=== PATIENT | female | born 1945 | race Two or more races ===

== ENCOUNTER 2023-06-25 09:00 | Inpatient (IN) | payer OTHER ==
[~2023-06-25] VITALS: Ht 149.9 cm; Wt 64.0 kg
[2023-06-25] MEDS ORDERED: OMEGA-31000 MG PO (14:41)
[2023-06-25] MEDS ORDERED: CARVEDILOL6.25 MG (14:42)
[2023-06-25] MEDS ORDERED: ZYLOPRIM100 M1 PO (14:42)
[2023-06-25] MEDS ORDERED: PEPCID AC20 MG PO (14:42)
[2023-06-25] MEDS ORDERED: CLARITIN10 M2 PO (14:43)
[2023-06-25] MEDS ORDERED: JANUVIA25 MG PO (14:43)
[2023-06-25] MEDS ORDERED: LIPITOR20 MG PO (14:43)
[2023-06-25] MEDS ORDERED: HYZAAR 100-251 EACH PO (14:44)
[2023-06-25] MEDS ORDERED: GLIPIZIDE XL5 MG PO (14:45)
[2023-06-25] MEDS ORDERED: HYDRALAZINE HCL25 MG PO (14:46)
[2023-07-09] MEDS ORDERED: METRONIDAZOLE/SODIUM CHLORIDE 500 MG/100 ML PIGGYBACK IV ONE ×3 (09:42→16:43)
[2023-07-09] MEDS ORDERED: levoFLOXacin IN DEXTROSE 5 % 5 MG/ML PIGGYBAG IV ONE ×2 (09:42→11:15)
[2023-07-09] MEDS ORDERED: BUPIVACAINE HCL/PF 0.5% 30ML ML ONE (09:47)
[2023-07-09] MEDS ORDERED: LIDOCAINE HCL 1%/Epi 20ML VIAL IJ ONE (09:47)
[2023-07-09] MEDS ORDERED: LIDOCAINE HCL/EPINEPHRINE 30 ML ML IJ ONE (11:15)
[2023-07-09] MEDS ORDERED: BUPIVACAINE HCL 30 ML VIAL IV ONE (11:15)
[2023-07-09] MEDS ORDERED: SUGAMMADEX SODIUM 200 MG/2 ML VIAL IV ONE ×2 (11:25→11:30)
[2023-07-09] MEDS ORDERED: LACTOBACILLUS ACIDOPHILUS 1 CAP CAP PO SCH (12:06)
[2023-07-09] MEDS ORDERED: RINGERS SOLUTION,LACTATED 1,000 ML IV SCH (12:15)
[2023-07-09] MEDS ORDERED: MORPHINE SULFATE 4 MG/ML CARTRIDGE IV PRN (12:15)
[2023-07-09] MEDS ORDERED: ONDANSETRON HCL 2 MG/ML VIAL IV PRN (12:15)
[2023-07-09] MEDS ORDERED: OxyCODONE HCL 5 MG TABLET (ROXICODONE) PO PRN (12:15)
[2023-07-09] MEDS ORDERED: HYOSCYAMINE SULFATE 0.125 MG TAB.SUBL SL SCH (13:00)
[2023-07-09] MEDS ORDERED: HYOSCYAMINE SULFATE 0.125 MG TAB.SUBL ONE (16:43)
[2023-07-09] MEDS ORDERED: GABAPENTIN 300 MG CAPSULE PO ONE (16:43)
[2023-07-09] MEDS ORDERED: METRONIDAZOLE/SODIUM CHLORIDE 500 MG/100 ML PIGGYBACK IV SCH (17:00)
[2023-07-09] MEDS ORDERED: GABAPENTIN 300 MG CAPSULE PO SCH (17:00)
[2023-07-09] MEDS ORDERED: ACETAMINOPHEN 500 MG GEL..CAP PO SCH (18:00)
[2023-07-09] MEDS ORDERED: CIPROFLOXACIN IN 5 % DEXTROSE 400 MG/200 ML PIGGYBAG IV SCH (21:00)
[2023-07-09] MEDS ORDERED: FAMOTIDINE/PF 20 MG/2 ML VIAL IV PUSH SCH (21:00)
[2023-07-10 07:58] LABS: ALBUMIN 2.9 gm/dL (3.4-5.0); CALCIUM 8.5 mg/dL (8.5-10.1); CREATININE SERUM 1.36 mg/dL (0.55-1.02); GFR 37.7; MAGNESIUM 1.9 mg/dL (1.8-2.4); PHOSPHOROUS 3.2 mg/dL (2.5-4.9); POTASSIUM 4.45 mEq/L (3.5-5.1)
[2023-07-10 09:09] LABS: MEAN CELL VOLUME 93.6 fL (80.00-100.00); PLATELET COUNT 172 K/uL (150-450); RED BLOOD COUNT 2.39 M/uL (4.00-6.00); RED CELL DISTRIBUTION WIDTH 14.5 % (11.5-14.5)
[2023-07-10 09:30] LABS: MEAN CORPUSCULAR HEMOGLOBIN 31.7 pg (27.00-32.0)
[2023-07-10 09:31] LABS: HEMATOCRIT 22.4 % (36.0-45.00); HEMOGLOBIN 7.6 g/dL (12.0-15.00)
[2023-07-10] MEDS ORDERED: FUROsemide 20 MG/2 ML VIAL IV PRN (10:45)
[2023-07-10] MEDS ORDERED: ENOXAPARIN SODIUM 40 MG/0.4 ML SYRINGE SUBCUTANEO SCH (17:00)
[2023-07-11 02:58] LABS: HEMATOCRIT 32.6 % (36.0-45.00); HEMOGLOBIN 11.5 g/dL (12.0-15.00); MEAN CELL VOLUME 86.4 fL (80.00-100.00); MEAN CORPUSCULAR HEMOGLOBIN 30.6 pg (27.00-32.0); MEAN CORPUSCULAR HGB CONC 35.4 g/dl (32.0-36.0); RED BLOOD COUNT 3.77 M/uL (4.00-6.00)
[2023-07-11 02:59] LABS: PLATELET COUNT 154 K/uL (150-450)
[2023-07-11 03:02] LABS: RED CELL DISTRIBUTION WIDTH 18.2 % (11.5-14.5)
[2023-07-11] MEDS ORDERED: ENOXAPARIN SODIUM 40 MG/0.4 ML SYRINGE SUBCUTANEO SCH (09:00)
[2023-07-12] MEDS ORDERED: NEURONTIN300 MG PO (07:05)
[2023-07-12] MEDS ORDERED: ACETAMINOPHEN650 M2 PO (07:06)
== END 2023-07-12 14:34 | disposition home or self-care (01) | DRG 330 ==
LOC: O/R 07-09 06:50 → SURG 07-09 06:50 → SURH 07-09 09:00 → O/R 07-09 11:50 → SURG 07-09 14:31
PROVIDERS: ADMIT Surgery; ATTEND Surgery
PROC: 07BB4ZZ Excision of Mesenteric Lymphatic, Percutaneous Endoscopic Approach (ICD-10-PCS; 2023-07-09)
PROC: 0DTF4ZZ Resection of Right Large Intestine, Percutaneous Endoscopic Approach (ICD-10-PCS; principal; 2023-07-09 11:00)
DX: C18.0 Malignant neoplasm of cecum (principal); K62.5 Hemorrhage of anus and rectum; K63.89 Other specified diseases of intestine

== ENCOUNTER 2024-07-14 06:38 | Day surgery (SDC) | payer OTHER ==
[~2024-07-14 06:38] MED LIST: ACETAMINOPHEN650 M2 PO; CARVEDILOL6.25 MG; CLARITIN10 M2 PO; GLIPIZIDE XL5 MG PO; HYDRALAZINE HCL25 MG PO; HYZAAR 100-251 EACH PO; JANUVIA25 MG PO; LIPITOR20 MG PO; NEURONTIN300 MG PO; OMEGA-31000 MG PO; PEPCID AC20 MG PO; ZYLOPRIM100 M1 PO
[2024-07-14] MEDS ORDERED: MIDAZOLAM HCL 2 MG/2 ML VIAL IV ONE (10:30)
[2024-07-14] MEDS ORDERED: fentaNYL CITRATE 50 MCG/ML AMPUL IV ONE (10:30)
[2024-07-14] MEDS ORDERED: DIPHENHYDRAMINE HCL 50 MG/ML VIAL 1ML IV ONE (10:30)
== END 2024-07-14 12:10 | disposition home or self-care (01) ==
LOC: AMB-ENDOS 06:38
PROVIDERS: ATTEND Surgery
DX: K62.5 Hemorrhage of anus and rectum (principal); Z85.048 Personal history of other malignant neoplasm of rectum, rectosigmoid junction, and anus; Z88.0 Allergy status to penicillin